=== PATIENT | female | born 1975 ===

== ENCOUNTER 2020-03-09 09:28 | Inpatient (IN) ==
[2020-03-09] MEDS ORDERED: Dextrose 50% Syringe 50 ml 25 GM/50 ML SYRINGE IV PUSH PRN (11:38)
[2020-03-09] MEDS ORDERED: Piperacillin/Tazobac ADVAN 3.375 GM in NS 0.9% 100 ml BAG 100 ML IV ONE (11:52)
[2020-03-09] MEDS ORDERED: Zosyn per Pharmacy NOTE FOLLOW UP SCH (12:00)
[2020-03-09] MEDS ORDERED: Vancomycin per Pharmacy 1 EA NOTE FOLLOW UP SCH (13:00)
[2020-03-09] MEDS: NS 0.9% 1000 ml BAG 1,000 ML IV SCH ×2 (13:29→23:07)
[2020-03-09] MEDS: Cefepime 2 GM in Dextrose 2 GM/50 ML BAG IV SCH ×2 (13:29→21:23)
[2020-03-09] MEDS ORDERED: Pneumococcal Vac 23-Polyvalent IM ONE (14:00)
[2020-03-09] MEDS: metroNIDAZOLE IV 500 MG/100ML 500 MG/100 ML BAG IVPB SCH ×2 (14:34→23:02)
[2020-03-09 16:13] LABS: Hematocrit 33 % (35-47); Hemoglobin 11.4 g/dL (12.0-16.0); Mean Corpuscular HGB Conc 35 g/dL (31-36); Mean Corpuscular Hemoglobin 31 pg (27-31); Mean Corpuscular Volume 88 fL (80-97); Platelet Count 313 10^3/uL (150-450); Red Blood Count 3.71 10^6 /uL (3.70-4.87); Red Cell Distribution Width 16 % (10-15); White Blood Count 16.4 10^3/uL (3.5-10.8)
[2020-03-09] MEDS ORDERED: Vancomycin Trough Check NOTE FOLLOW UP ONE (16:30)
[2020-03-09 16:34] LABS: BUN/Creatinine Ratio 17.7 (8-20); C Reactive Protein 300.5 mg/L (<8.01); Calcium 8.7 mg/dL (8.6-10.3); EGFR African American 125.4 (>60); EGFR Non-African American 103.6 (>60); Potassium 3.5 mmol/L (3.5-5.0)
[2020-03-09 16:41] LABS: INR 1.24 (0.82-1.09)
[2020-03-09 17:23] LABS: ABS Basophils 0.1 10^3/ul (0-0.2); ABS Neutrophils 13.4 10^3/ul (1.5-7.7); Eosinophil % 0.2 %; Lymphocyte % 11.9 %
[2020-03-09] MEDS ORDERED: Insulin GLARGINE 100 un/ml 10 ml VIAL SUBCUT SCH (18:00)
[2020-03-09] MEDS ORDERED: NS 0.9% 500 ml BAG 500 ML IV ONE (21:31)
[2020-03-09 22:51] LABS: Erythrocyte Sed Rate > 120 mm/Hr (0-19)
[2020-03-10] MEDS: Cefepime 2 GM in Dextrose 2 GM/50 ML BAG IV SCH ×2 (05:35→20:17)
[2020-03-10 06:09] LABS: Hematocrit 33 % (35-47); Hemoglobin 10.8 g/dL (12.0-16.0); Mean Corpuscular HGB Conc 33 g/dL (31-36); Mean Corpuscular Hemoglobin 29 pg (27-31); Mean Corpuscular Volume 89 fL (80-97); Mean Platelet Volume 7.1 fL (7.4-10.4); Platelet Count 300 10^3/uL (150-450); Red Blood Count 3.72 10^6 /uL (3.70-4.87); Red Cell Distribution Width 16 % (10-15); White Blood Count 16.2 10^3/uL (3.5-10.8)
[2020-03-10] MEDS: metroNIDAZOLE IV 500 MG/100ML 500 MG/100 ML BAG IVPB SCH ×3 (06:22→22:07)
[2020-03-10 06:39] LABS: Albumin 2.7 g/dL (3.2-5.2); Albumin/Globulin Ratio 0.8 (1-3); Calcium 8.3 mg/dL (8.6-10.3); EGFR African American 160.7 (>60); EGFR Non-African American 132.8 (>60); Globulin 3.3 g/dL (2-4); Potassium 3.9 mmol/L (3.5-5.0); Total Bilirubin 0.3 mg/dL (0.2-1.0)
[2020-03-10 07:59] LABS: ABS Basophils 0.1 10^3/ul (0-0.2); ABS Eosinophils 0.1 10^3/ul (0-0.6); Eosinophil % 0.5 %; Lymphocyte % 12.3 %
[2020-03-10] MEDS ORDERED: Insulin GLARGINE 100 un/ml 10 ml VIAL SUBCUT SCH (18:00)
[2020-03-11] MEDS: metroNIDAZOLE IV 500 MG/100ML 500 MG/100 ML BAG IVPB SCH ×3 (05:45→22:00)
[2020-03-11] MEDS ORDERED: Lactated Ringers 1000 ml BAG 1,000 ML IV SCH (06:00)
[2020-03-11] MEDS ORDERED: Buffered Lidocaine 1% SYRIN 1 ml INTRADERM ONE (06:00)
[2020-03-11 07:41] LABS: Anion Gap 12 mmol/L (2-11); BUN/Creatinine Ratio 19.1 (8-20); Blood Urea Nitrogen 9 mg/dL (6-24); CO2 Carbon Dioxide 19 mmol/L (22-32); Calcium 8.3 mg/dL (8.6-10.3); Chloride 105 mmol/L (101-111); EGFR African American 172.6 (>60); EGFR Non-African American 142.7 (>60); Glucose 254 mg/dL (70-100); Potassium 3.2 mmol/L (3.5-5.0); Sodium 136 mmol/L (135-145)
[2020-03-11] MEDS: Cefepime 2 GM in Dextrose 2 GM/50 ML BAG IV SCH ×2 (07:45→20:39)
[2020-03-11 07:59] LABS: Hematocrit 29 % (35-47); Hemoglobin 9.9 g/dL (12.0-16.0); Mean Corpuscular HGB Conc 34 g/dL (31-36); Mean Corpuscular Hemoglobin 30 pg (27-31); Mean Corpuscular Volume 88 fL (80-97); Mean Platelet Volume 7.2 fL (7.4-10.4); Platelet Count 318 10^3/uL (150-450); Red Blood Count 3.31 10^6 /uL (3.70-4.87); Red Cell Distribution Width 16 % (10-15); White Blood Count 16.3 10^3/uL (3.5-10.8)
[2020-03-11] MEDS ORDERED: Midazolam 2 mg/2 ml VIAL 1 mg/ml 2 ml VIAL (2 mg) ONE (08:36)
[2020-03-11] MEDS ORDERED: fentaNYL 100 mcg/2 ml 50 MCG/ML VIAL ONE (08:36)
[2020-03-11] MEDS ORDERED: Bupivacaine 0.25% SDV 30 ML ONE (08:37)
[2020-03-11 08:40] LABS: ABS Basophils 0.1 10^3/ul (0-0.2); ABS Eosinophils 0.1 10^3/ul (0-0.6); ABS Neutrophils 13.1 10^3/ul (1.5-7.7); Eosinophil % 0.5 %; Lymphocyte % 12.4 %
[2020-03-11] MEDS ORDERED: Propofol 10 MG/ML 20 ML BTL ONE ×2 (09:10→09:58)
[2020-03-11] MEDS ORDERED: Lidocaine 2% PF 5 ML VIAL ONE (09:10)
[2020-03-11] MEDS ORDERED: Metoclopramide 5 MG/ML VIAL (10 mg) IV PRN (09:39)
[2020-03-11] MEDS ORDERED: fentaNYL 100 mcg/2 ml 50 MCG/ML VIAL IV PRN (09:39)
[2020-03-11] MEDS ORDERED: Naloxone 0.4 mg VIAL 0.4 mg/ml 1 ml VIAL IV PRN (09:39)
[2020-03-11] MEDS ORDERED: Ondansetron 4 mg VIAL 2 MG/ML 2 ml VIAL ONE (10:04)
[2020-03-11] MEDS ORDERED: Potassium Chlor 20 meq TAB.ER PO ONE (11:34)
[2020-03-11] MEDS: Morphine 2 MG/ML SYRINGE IV PRN ×3 (11:59→20:45)
[2020-03-11 14:39] LABS: % Iron Saturation 16 % (15-55); Iron 22 ug/dL (50-212); Total Iron Binding Capacity 134 mcg/dL (250-450); Transferrin 96 mg/dL (203-362); Unsaturated Iron Binding < 119 ug/dL
[2020-03-11 14:59] LABS: Ferritin > 1500.0 ng/mL (11-307)
[2020-03-11] MEDS ORDERED: Insulin GLARGINE 100 un/ml 10 ml VIAL SUBCUT SCH (18:00)
[2020-03-11] MEDS: Heparin 5000 UNITS/ML 1 mL VIAL SUBCUT SCH (20:40)
[2020-03-12] MEDS: metroNIDAZOLE IV 500 MG/100ML 500 MG/100 ML BAG IVPB SCH ×3 (05:03→21:46)
[2020-03-12 06:52] LABS: Hematocrit 28 % (35-47); Hemoglobin 9.6 g/dL (12.0-16.0); Mean Corpuscular HGB Conc 34 g/dL (31-36); Mean Corpuscular Hemoglobin 30 pg (27-31); Mean Corpuscular Volume 88 fL (80-97); Mean Platelet Volume 7.2 fL (7.4-10.4); Platelet Count 309 10^3/uL (150-450); Red Blood Count 3.16 10^6 /uL (3.70-4.87); Red Cell Distribution Width 16 % (10-15); White Blood Count 13.2 10^3/uL (3.5-10.8)
[2020-03-12 06:55] LABS: ABS Eosinophils 0.1 10^3/ul (0-0.6); ABS Lymphocytes 2.1 10^3/ul (1.0-4.8); ABS Monocytes 0.8 10^3/ul (0-0.8); ABS Neutrophils 10.1 10^3/ul (1.5-7.7); Lymphocyte % 16.2 %
[2020-03-12 07:14] LABS: BUN/Creatinine Ratio 26.9 (8-20); C Reactive Protein 160.03 mg/L (<8.01); Calcium 8.4 mg/dL (8.6-10.3); EGFR African American 153.6 (>60); EGFR Non-African American 126.9 (>60)
[2020-03-12] MEDS: Cefepime 2 GM in Dextrose 2 GM/50 ML BAG IV SCH ×2 (08:59→20:47)
[2020-03-12] MEDS: Heparin 5000 UNITS/ML 1 mL VIAL SUBCUT SCH (09:01)
[2020-03-12] MEDS: Morphine 2 MG/ML SYRINGE IV PRN ×3 (09:04→18:15)
[2020-03-12] MEDS: Nystatin TOP POWDER 15 GM BTL TOPICAL SCH ×2 (12:48→20:49)
[2020-03-12] MEDS ORDERED: Magnesium Hydroxide LIQ 30 ML UDC PO PRN (15:25)
[2020-03-12] MEDS ORDERED: Senna TAB 8.6 mg TAB PO PRN (15:25)
[2020-03-12] MEDS: Insulin GLARGINE 100 un/ml 10 ml VIAL SUBCUT SCH (18:10)
[2020-03-12] MEDS: Enoxaparin 40 MG/0.4 ML SYR SUBCUT SCH (20:48)
[2020-03-13] MEDS: Morphine 2 MG/ML SYRINGE IV PRN ×3 (03:40→20:26)
[2020-03-13] MEDS: metroNIDAZOLE IV 500 MG/100ML 500 MG/100 ML BAG IVPB SCH ×2 (05:04→20:26)
[2020-03-13] MEDS: Cefepime 2 GM in Dextrose 2 GM/50 ML BAG IV SCH (08:23)
[2020-03-13] MEDS: Nystatin TOP POWDER 15 GM BTL TOPICAL SCH ×3 (08:23→20:50)
[2020-03-13] MEDS: Insulin GLARGINE 100 un/ml 10 ml VIAL SUBCUT SCH (16:58)
[2020-03-13] MEDS: ceFAZolin 2 GM PREMIX 2 GM/50 ML BAG IVPB SCH (17:00)
[2020-03-13] MEDS ORDERED: Insulin GLARGINE 100 un/ml 10 ml VIAL SUBCUT ONE (19:15)
[2020-03-13] MEDS: Enoxaparin 40 MG/0.4 ML SYR SUBCUT SCH (20:26)
[2020-03-14] MEDS: ceFAZolin 2 GM PREMIX 2 GM/50 ML BAG IVPB SCH ×3 (00:50→17:43)
[2020-03-14 06:17] LABS: Hematocrit 29 % (35-47); Hemoglobin 9.5 g/dL (12.0-16.0); Mean Corpuscular HGB Conc 33 g/dL (31-36); Mean Corpuscular Hemoglobin 29 pg (27-31); Mean Corpuscular Volume 89 fL (80-97); Mean Platelet Volume 6.8 fL (7.4-10.4); Platelet Count 409 10^3/uL (150-450); Red Blood Count 3.22 10^6 /uL (3.70-4.87); Red Cell Distribution Width 17 % (10-15); White Blood Count 11.2 10^3/uL (3.5-10.8)
[2020-03-14 06:36] LABS: BUN/Creatinine Ratio 16.3 (8-20); C Reactive Protein 85.67 mg/L (<8.01); EGFR African American 191.3 (>60); EGFR Non-African American 158.1 (>60); Potassium 3.9 mmol/L (3.5-5.0)
[2020-03-14 07:50] LABS: Erythrocyte Sed Rate > 120 mm/Hr (0-19)
[2020-03-14] MEDS: Nystatin TOP POWDER 15 GM BTL TOPICAL SCH ×3 (09:24→21:07)
[2020-03-14] MEDS: metroNIDAZOLE IV 500 MG/100ML 500 MG/100 ML BAG IVPB SCH ×2 (10:06→21:07)
[2020-03-14] MEDS: Morphine 2 MG/ML SYRINGE IV PRN ×2 (11:42→21:06)
[2020-03-14] MEDS ORDERED: Insulin GLARGINE 100 un/ml 10 ml VIAL SUBCUT SCH ×2 (18:00)
[2020-03-14] MEDS: Enoxaparin 40 MG/0.4 ML SYR SUBCUT SCH (21:06)
[2020-03-15] MEDS: ceFAZolin 2 GM PREMIX 2 GM/50 ML BAG IVPB SCH ×3 (01:10→17:58)
[2020-03-15] MEDS: Morphine 2 MG/ML SYRINGE IV PRN ×2 (05:27→10:45)
[2020-03-15] MEDS: metroNIDAZOLE IV 500 MG/100ML 500 MG/100 ML BAG IVPB SCH ×2 (10:48→20:31)
[2020-03-15] MEDS: Nystatin TOP POWDER 15 GM BTL TOPICAL SCH ×3 (11:47→21:57)
[2020-03-15] MEDS ORDERED: Dextrose 50% Syringe 50 ml 25 GM/50 ML SYRINGE IV PUSH PRN (16:02)
[2020-03-15] MEDS ORDERED: oxyCODONE/Acetamin 5/325 mg TAB PO PRN (16:34)
[2020-03-15] MEDS ORDERED: Insulin GLARGINE 100 un/ml 10 ml VIAL SUBCUT SCH (18:00)
[2020-03-15] MEDS: Enoxaparin 40 MG/0.4 ML SYR SUBCUT SCH (20:31)
[2020-03-16] MEDS: ceFAZolin 2 GM PREMIX 2 GM/50 ML BAG IVPB SCH ×2 (01:07→09:32)
[2020-03-16] MEDS: Nystatin TOP POWDER 15 GM BTL TOPICAL SCH ×2 (10:49→12:46)
[2020-03-16] MEDS: metroNIDAZOLE IV 500 MG/100ML 500 MG/100 ML BAG IVPB SCH (10:49)
[2020-03-16 12:04] VITALS: BP 146/93
== END 2020-03-16 15:20 | DRG 710 ==
LOC: MED 11:26
PROVIDERS: ADMIT Student in an Organized Health Care Education/Training Program; ATTEND Internal Medicine